=== PATIENT | female | born 1985 | race Caucasian/White ===

== ENCOUNTER 2016-04-29 05:54 | Inpatient (IN) | payer BC ==
[2016-04-29] VITALS (35 sets, daily range): BP systolic 113–142; BP diastolic 68–91; PULSE 72–109; RESP 16–18; TEMP 97.8–98.6
[~2016-04-29 05:54] MED LIST: LOMO PO; METF500 PO; PANT20 PO; ZOFR4TAB3 SL
[2016-04-29] MEDS ORDERED: LACTATED RINGER'S 1000 ML IV SCH (06:30)
[2016-04-29] MEDS ORDERED: LIDOCAINE HCL 1% 50 ML VIAL INFIL PRN (06:30)
[2016-04-29] MEDS ORDERED: NS 1000 ML IV PRN (06:30)
[2016-04-29] MEDS ORDERED: OXYTOCIN 30 UNITS 500ML PREMIX IV ONE (06:30)
[2016-04-29] MEDS ORDERED: LIDOCAINE HCL 1% 50 ML VIAL I-DERMAL PRN (06:30)
[2016-04-29] MEDS ORDERED: OXYTOCIN 30 UNITS/NS 500ML PREMIX IV SCH (06:30)
[2016-04-29] MEDS ORDERED: ONDANSETRON HCL 4 MG/2 ML VIAL IV PRN (06:30)
[2016-04-29] MEDS ORDERED: NS 500 ML BOLUS IV PRN (06:30)
[2016-04-29] MEDS ORDERED: LACTATED RINGER'S 1000 ML BOLUS IV PRN (06:30)
[2016-04-29] MEDS ORDERED: MINERAL OIL 10 ML VIAL TOP PRN (06:30)
[2016-04-29] MEDS ORDERED: CITRIC ACID-SODIUM CITRATE LIQ 30 ML UDC PO SCH (06:30)
[2016-04-29 07:00] LABS: AUTOMATED NEUTROPHIL # 5.9 TH/MM3 (1.8-7.7); BASOPHIL % 0.1 % (0.0-2.0); EOSINOPHIL # 0.1 TH/MM3 (0-0.4); EOSINOPHIL % 1.2 % (0.0-4.0); HEMATOCRIT 32.8 % (35.0-46.0); HEMO FLAGS DIFF FINAL; LYMPH % 18.2 % (9.0-44.0); LYMPHOCYTE # 1.5 TH/MM3 (1.0-4.8); MEAN CELL VOLUME 91.3 FL (80.0-100.0); MEAN CORPUSCULAR HEMOGLOBIN 31.7 PG (27.0-34.0); MEAN CORPUSCULAR HGB CONC 34.7 % (32.0-36.0); MONO % 6.3 % (0.0-8.0); NEUT % 74.2 % (16.0-70.0); PLATELET COUNT 230 TH/MM3 (150-450); RED BLOOD COUNT 3.59 MIL/MM3 (4.00-5.30); RED CELL DISTRIBUTION WIDTH 13.4 % (11.6-17.2)
[2016-04-29 08:23] LABS: BACTERIA, URINE OCC /hpf; BLOOD, URINE NEG (NEG); COMMENT (UR) CULT NOT INDICATED; CULTURE IF INDICATED CULT NOT INDICATED; GLUCOSE,URINE NEG (NEG); KETONE, URINE NEG (NEG); MUCUS URINE FEW /lpf (OCC); NITRITE,URINE NEG (NEG); PH, URINE 5.5 (5.0-8.5); SQUAMOUS EPITHELIAL CELL URINE 2 /hpf (0-5); URINE COLOR YELLOW (YELLW/STRAW)
[2016-04-29] MEDS ORDERED: fentaNYL 2MCG-BUPIV 0.125% INJ 100 ML ONE (12:39)
[2016-04-29] MEDS ORDERED: BENZOCAINE 20% TOPICAL SPRAY 60 ML CAN TOPICAL PRN (13:15)
[2016-04-29] MEDS ORDERED: ALUMINUM/MAGNESIUM/SIMETH 30 ML CUP PO PRN (13:15)
[2016-04-29] MEDS ORDERED: ONDANSETRON ODT 4 MG TAB PO PRN (13:15)
[2016-04-29] MEDS ORDERED: DOCUSATE SODIUM 50 MG/SENNA 8.6 MG TAB PO PRN (13:15)
[2016-04-29] MEDS ORDERED: WITCH HAZEL 50%/GLYCERIN 12.5% 40 PAD JAR TOPICAL PRN (13:15)
[2016-04-29] MEDS ORDERED: OXYTOCIN 30 UNITS-500ML PREMIX 500 ML IV ONE (13:15)
[2016-04-29] MEDS ORDERED: OXYTOCIN 10 UNIT/ML AMP XX PRN (13:15)
[2016-04-29] MEDS ORDERED: ACETAMINOPHEN 325 MG TAB PO PRN (13:15)
[2016-04-29] MEDS ORDERED: oxyCODONE/ACETAMINOPHEN 5 MG/325 MG TAB PO PRN ×2 (13:15)
[2016-04-29] MEDS ORDERED: SODIUM CHLORIDE 0.9% FLUSH 5 ML FLUSH IV PRN (13:15)
--- NOTE | 2016-04-29 13:20 | PD.OB.DELI ---
Delivery Date: Apr 29, 2016 Anesthesia: None Episiotomy: None Vaginal Delivery: Normal Presentation: Occiput anterior Nuchal Cord: x1 Delayed cord clamping (45 sec): Yes (60 secs) : Female One Minute : 8 Five Minute : 8 Weight: 3544 Care: Spontaneous crying Placenta: Spontaneous delivery, Intact, 3 vessel cord Laceration: No lacerations Additional Information EBL 150cc Courtesy standby delivery for Samy Worthington MD Apr 29, 2016 13:20
--- NOTE | 2016-04-29 13:21 | HHI.HP ---
HPI Travel History International Travel<30 Days: No Contact w/Intl Traveler<30Days: No History of Present Illness HPI 30 yo presents for induction of labor at 39 wks. uncomplicated . + FM, no LOF/VB/CTX Para: 3 : 4 History Past Medical History Narrative Medical depression left knee arthritis colitis Obstetric History Obstetric History X 3 Past Surgical History Narrative Surgical knee surgery scope cholecystectomy Family History Narrative Family History father: heart dz mother: HTN, DM Social History Alcohol Use: No Tobacco Use: No Substance Abuse: No Allergies-Medications (Allergen,Severity, Reaction): Coded Allergies: Diclofenac (Unverified Allergy, Severe, unknown, 12/02/14) Morphine (Verified Allergy, Severe, HIVES, 12/02/14) Naprosyn (Verified Adverse Reaction, Severe, ABD ULCERS, 12/02/14) Home Meds Active Scripts Diphenoxylate/Atropine (Lomotil)1 Tab Tab1 Tab PO PRN #12 TAB 1 TAB, 5 TIMES A DAY NEEDED WITH EACH EPISODE OF DIARRHEA. DO NOT EXCEED 5 TABLETS/DAY. Prov:Joel Phelps MD 11/24/14 Ondansetron (Zofran ODT)4 Mg Tab4 Mg SL Q6H PRN (NAUSEA) #6 TAB FOR NAUSEA/VOMITING Prov:Joel Phelps MD 11/24/14 Pantoprazole Sodium (Protonix)20 Mg Tab20 Mg PO DAILY #15 TAB Prov:Joel Phelps MD 11/24/14 Reported Medications Metformin 500 mg (Glucophage 500 mg)500 Mg [id number] Mg PO BIDPC 11/24/14 Review of Systems Except as stated in HPI: all other systems reviewed are Neg Physical Exam Narrative GENERAL: Well-nourished, well-developed patient. SKIN: Warm and dry. HEAD: Normocephalic and atraumatic. EYES: No scleral icterus. No injection or drainage. ENT: No nasal drainage noted. Mucous membranes pink. Airway patent. NECK: Supple, trachea midline. No JVD. CARDIOVASCULAR: Regular rate and rhythm without murmurs, gallops, or rubs. RESPIRATORY: Breath sounds equal bilaterally. No accessory muscle use. BREASTS: Bilateral exam showed no masses , no retractions, no nipple discharge. ABDOMEN/GI: Abdomen soft, non-tender, bowel sounds present, no rebound, no guarding Gravid to [40] weeks size Fundal Height: [-] GENITOURINARY: External Genitalia: intact and normal in appearance BUS glands: [-] Cervix: [ 3-4/ 50/-3 on admission] Dilatation: [-] Effacement: [-] Station: [-] Presentation: [-] Membranes: [intact or ruptured] Uterine Contractions: [-] FHT's: Category: [-] Baseline: [-] Reactive: [-] Variability: [-] Decels: [-] EXTREMITIES: No cyanosis or edema. BACK: Nontender without obvious deformity. No CVA tenderness. NEUROLOGICAL: Awake and alert. Motor and sensory grossly within normal limits. Five out of 5 muscle strength in all muscle groups. Normal speech. Data Data Orders Admit To Inpatient (04/29/16 ) Code Status (04/29/16 06:00) Vital Signs (Adult) .Per protocol (04/29/16 06:00) ^ Heart (04/29/16 06:00) ^ Amnioinfusion (04/29/16 06:00) Urinary Catheter Management .ONCE (04/29/16 06:00) Diet Liquid (04/29/16 Breakfast) Complete Blood Count With Diff (04/29/16 06:00) Hold Clot (04/29/16 06:00) Abo/Rh Blood Type (04/29/16 06:00) Urinalysis - C+S If Indicated (04/29/16 06:00) Resp Oxygen Non Rebreathe Mask (04/29/16 ) ^ Epidural / Intrathecal Infus (04/29/16 06:00) ^ Non Stress Test (04/29/16 06:00) Response To Medication .Post New Med Administration, Reaction (04/29/16 06:00) ^ Discontinue Medication (04/29/16 06:00) Lactated Ringer's 1000 Ml Inj (Lr 1000 M (04/29/16 06:30) Lactated Ringer's 1000 Ml Inj (Lr 1000 M (04/29/16 06:30) Sodium Chlorid 0.9% 500 Ml Inj (Ns 500 M (04/29/16 06:30) Sodium Chlor 0.9% 1000 Ml Inj (Ns 1000 M (04/29/16 06:30) Lidocaine 1% Inj (50 Ml) (Xylocaine 1% I (04/29/16 06:30) Citric Acid-Sodium Citrate Liq (Bicitra (04/29/16 06:30) Ondansetron Inj (Zofran Inj) (04/29/16 06:30) Fentanyl Inj (Fentanyl Inj) (04/29/16 06:30) Fentanyl Inj (Fentanyl Inj) (04/29/16 06:30) Oxytocin 30 Units-500ml Premix (Pitocin (04/29/16 06:30) Lidocaine 1% Inj (50 Ml) (Xylocaine 1% I (04/29/16 06:30) Light Mineral Oil (Muri-Lube Oil) (04/29/16 06:30) Oxytocin 30 Units-500ml Premix (Pitocin (04/29/16 06:30) Fentanyl 2mcg-Bupiv 0.125% Inj (Fentanyl (04/29/16 12:39) Oxytocin Inj (Pitocin Inj) (04/29/16 13:15) Oxytocin 30 Units-500ml Premix (Pitocin (04/29/16 13:15) Vital Signs (Adult) .QSHIFT (04/29/16 13:12) Activity Oob Ad Sofia (04/29/16 13:12) Ice / Cold Pack PRN (04/29/16 13:12) ^ Discontinue Iv (04/29/16 13:12) ^ Sitz Bath PRN (04/29/16 13:12) ^ Massage (04/29/16 13:12) ^ Rhogam (04/29/16 13:12) Urinary Catheter Management .PRN (04/29/16 13:12) Diet Regular Basic (04/29/16 Lunch) Sodium Chloride 0.9% Flush (Ns Flush) (04/29/16 21:00) Sodium Chloride 0.9% Flush (Ns Flush) (04/29/16 13:15) Acetaminophen (Tylenol) (04/29/16 13:15) Ibuprofen (Motrin) (04/29/16 13:15) Oxycodone-Acetamin 5-325 Mg (Percocet (04/29/16 13:15) Oxycodone-Acetamin 5-325 Mg (Percocet (04/29/16 13:15) Benzocaine 20% Top Spr (Americaine 20% T (04/29/16 13:15) Witch Isa-Glycerin Pad (Tucks Pads) (04/29/16 13:15) Docusate Sodium-Senna (Maricruz-Colace) (04/29/16 13:15) Zolpidem (Ambien) (04/29/16 13:15) Fqbwxpb-Lcpal-Ujpkiyd Inj (M-M-R Ii Inj) (04/29/16 16:00) Ysbl-Dxb-Edsmoh (Booster) Inj (Boostrix (04/29/16 16:00) Al-Mag Hy-Si 40-40-4 Mg/Ml Liq (Mag-Al P (04/29/16 13:15) Ondansetron Odt (Zofran Odt) (04/29/16 13:15) Labs Laboratory Tests Test 04/29/16 06:20 White Blood Count 8.0 Red Blood Count 3.59 Hemoglobin 11.4 Hematocrit 32.8 Mean Corpuscular Volume 91.3 Mean Corpuscular Hemoglobin 31.7 Mean Corpuscular Hemoglobin 34.7 Concent Red Cell Distribution Width 13.4 Platelet Count 230 Mean Platelet Volume 8.9 Neutrophils (%) (Auto) 74.2 Lymphocytes (%) (Auto) 18.2 Monocytes (%) (Auto) 6.3 Eosinophils (%) (Auto) 1.2 Basophils (%) (Auto) 0.1 Neutrophils # (Auto) 5.9 Lymphocytes # (Auto) 1.5 Monocytes # (Auto) 0.5 Eosinophils # (Auto) 0.1 Basophils # (Auto) 0.0 CBC Comment DIFF FINAL Differential Comment Urine Color YELLOW Urine Turbidity CLEAR Urine pH 5.5 Urine Specific [place] 1.015 Urine Protein NEG Urine Glucose (UA) NEG Urine Ketones NEG Urine Occult Blood NEG Urine Nitrite NEG Urine Bilirubin NEG Urine Urobilinogen LESS THAN 2.0 Urine Leukocyte Esterase NEG Urine RBC LESS THAN 1 Urine WBC 2 Urine Squamous Epithelial 2 Cells Urine Bacteria OCC Urine Mucus FEW Microscopic Urinalysis Comment CULT NOT INDICATED Blood Type O POSITIVE Band and Hold Assessment/Plan Problem List: (1) Plan: AROM Pitocin GBS neg Elvi Mejia MD Apr 29, 2016 13:21
[2016-04-29] MEDS ORDERED: DIPHTH/TETANUS/ACEL PERTUSSIS (BOOSTER) 0.5 ML VIAL/PFS IM ONE (16:00)
[2016-04-29] MEDS ORDERED: MEASLES, MUMPS, RUBELLA VACCINE 0.5 ML VIAL SQ ONE (16:00)
[2016-04-29] MEDS ORDERED: SODIUM CHLORIDE 0.9% FLUSH 5 ML FLUSH IV SCH (21:00)
[2016-04-29] MEDS ORDERED: ZOLPIDEM TARTRATE 5 MG TAB PO PRN (21:00)
[2016-04-29] MEDS: IBUPROFEN 600 MG TAB PO PRN (21:51)
[2016-04-30 08:00] VITALS: BP 116/78; PULSE 82; RESP 18; TEMP 98.1
[2016-04-30] MEDS: IBUPROFEN 600 MG TAB PO PRN ×2 (08:24→16:17)
[2016-05-01 07:50] VITALS: BP 131/82; PULSE 86; RESP 20; TEMP 97.9
[2016-05-01] MEDS: IBUPROFEN 600 MG TAB PO PRN (08:01)
== END 2016-05-01 11:05 | disposition home or self-care (01) | DRG 775 ==
LOC: H2EA 05:54 → H1EA 14:43
PROVIDERS: ADMIT Obstetrics & Gynecology; ATTEND Obstetrics & Gynecology
PROC: 10E0XZZ Delivery of Products of Conception, External Approach (ICD-10-PCS; principal; 2016-04-29)
DX: O69.81X0 Labor and delivery complicated by cord around neck, without compression, not applicable or unspecified (principal); M17.12 Unilateral primary osteoarthritis, left knee; Z37.0 Single live birth; Z3A.39 39 weeks gestation of pregnancy; Z88.5 Allergy status to narcotic agent; Z88.6 Allergy status to analgesic agent
CPT/HCPCS: 59025; 81001; 85025; 90715; J2590; J3010; J7120

== ENCOUNTER 2016-07-01 18:48 | Emergency (ER) | payer BC, OTHER ==
[~2016-07-01] VITALS: Ht 175.3 cm; Wt 91.0 kg
[2016-07-01 19:00] VITALS: BP 127/74; PULSE 98; RESP 16; TEMP 97.8; O2SAT 98
[2016-07-01 20:21] LABS: AUTOMATED NEUTROPHIL # 4.6 TH/MM3 (1.8-7.7); BASOPHIL % 0.4 % (0.0-2.0); EOSINOPHIL # 0.1 TH/MM3 (0-0.4); EOSINOPHIL % 1.4 % (0.0-4.0); HEMATOCRIT 37.8 % (35.0-46.0); HEMO FLAGS DIFF FINAL; LYMPH % 22.3 % (9.0-44.0); LYMPHOCYTE # 1.5 TH/MM3 (1.0-4.8); MEAN CELL VOLUME 89.1 FL (80.0-100.0); MEAN CORPUSCULAR HEMOGLOBIN 30.3 PG (27.0-34.0); MONO % 7.2 % (0.0-8.0); NEUT % 68.7 % (16.0-70.0); PLATELET COUNT 306 TH/MM3 (150-450); RED BLOOD COUNT 4.24 MIL/MM3 (4.00-5.30); RED CELL DISTRIBUTION WIDTH 13.1 % (11.6-17.2); WHITE BLOOD COUNT 6.6 TH/MM3 (4.0-11.0)
[2016-07-01 20:29] LABS: BLOOD, URINE NEG (NEG); COMMENT (UR) CULT NOT INDICATED; CULTURE IF INDICATED CULT NOT INDICATED; GLUCOSE,URINE NEG (NEG); HYALINE CAST, URINE 1 /lpf (RARE); KETONE, URINE NEG (NEG); NITRITE,URINE NEG (NEG); SQUAMOUS EPITHELIAL CELL URINE 8 /hpf (0-5); URINE COLOR YELLOW (YELLW/STRAW)
[2016-07-01 20:33] LABS: AMPHETAMINE, URINE NEG (NEG); BARBITURATES, URINE NEG (NEG); COCAINE, URINE NEG (NEG)
[2016-07-01 20:37] LABS: ANION GAP 8 MEQ/L (5-15); BICARBONATE 26.6 MEQ/L (21.0-32.0); BLOOD UREA NITROGEN 9 MG/DL (7-18); CHLORIDE 105 MEQ/L (98-107); GLOMERULAR FILTRATION RATE 82 ML/MIN (>89); POTASSIUM 3.8 MEQ/L (3.5-5.1); SODIUM (NA) 140 MEQ/L (136-145)
--- NOTE | 2016-07-01 21:13 | PD ---
HPI Chief Complaint: Psychiatric Symptoms Time Seen by Provider: 21:13 Travel History International Travel<30 days: No Contact w/Intl Traveler<30days: No Traveled to known affect area: No History of Present Illness HPI 30-year-old female presents to the emergency department under Nolasco act for suicidal ideations. The patient states that she has had worsening depression recently and got into an argument with her today and insulin U he did that she was going to swallow a whole bottle of pills. States that her stopped her before she could take the pills. States that she thinks it was a bottle of Percocet but is really not sure, she did not ingest anything anyway. She states that she is 8 weeks with a at home and is under a lot of stress. States that she saw her doctor 2 weeks ago and was prescribed Zoloft but has not begun taking this medication because "I was in denial." She denies any alcohol or drug use. She does complain of feeling some pressure in her breasts because she has missed pumping over the last several hours while being here in the hospital. Denies any fever, chills, nausea, vomiting, chest pain, shortness of breath, abdominal pain. No other complaints. PFSH Past Medical History Hx Anticoagulant Therapy: No Anxiety: Yes Depression: Yes Heart Rhythm Problems: Yes (HX OF INCREASE HEART RATE NOT ABOVE 110) Cancer: No Cardiac Catheterization: Yes (APR 2012) Cardiovascular Problems: No High Cholesterol: No Chemotherapy: No Chest Pain: Yes Congestive Heart Failure: No Cerebrovascular Accident: No Diabetes: No Diminished Hearing: No Endocrine: No Gastrointestinal Disorders: Yes (hx of stomach ulcers) GERD: Yes Genitourinary: No Hepatitis: No Hiatal Hernia: No Immune Disorder: No Musculoskeletal: Yes (arthritis neck and back problems) Neurologic: Yes (migraines) Psychiatric: No Reproductive: No Respiratory: No Migraines: Yes Thyroid Disease: No ?: Not : 3 Para: 3 Past Surgical History Abdominal Surgery: No Body Medical Devices: titanium pins left knee Cardiac Surgery: No Cholecystectomy: Yes (JUNE 2013) Coronary Artery Bypass Graft: No Ear Surgery: No Endocrine Surgery: No Eye Surgery: No Genitourinary Surgery: No Gynecologic Surgery: No Hysterectomy: No Joint Replacement: No Oral Surgery: Yes (WISDOM TEETH SEPTEMBER 2013) Pacemaker: No Thoracic Surgery: No Tonsillectomy: Yes Other Surgery: Yes (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 DO NOT EXCEED 5 TABLETS/DAY. Zofran ODT (Ondansetron HCl) 4 Mg Tab 4 Mg SL Q6H PRN FOR NAUSEA/VOMITING Protonix (Pantoprazole Sodium) 20 Mg Tab 20 Mg PO DAILY Reported Glucophage 500 mg (Metformin HCl) 500 Mg Tab 500 Mg PO BIDPC Review of Systems Except as stated in HPI: all other systems reviewed are Neg Physical Exam Narrative GENERAL: Well-nourished and well-developed pleasant female patient in no acute distress. SKIN: Warm and dry. HEAD: Normocephalic and atraumatic. No EYES: No injection, drainage, or hyphema noted. PERRLA. EOMI. ENT: No nasal drainage noted. Oropharynx is clear. NECK: Supple and the trachea is midline. CARDIOVASCULAR: Regular rate and rhythm. RESPIRATORY: Breath sounds are equal bilaterally with no accessory muscle use, wheezing, rhonchi, or crackles. GASTROINTESTINAL: Abdomen is soft, non-tender, and nondistended. MUSCULOSKELETAL: No obvious deformities, swelling, cyanosis, or ecchymosis is present throughout the upper and lower extremities. Patient has full range of motion without any signs of neurovascular compromise. NEUROLOGICAL: Awake, alert, and oriented. Normal speech and gait. Cranial nerves are grossly intact. Data Data Last Documented VS Vital Signs Date Time Temp Pulse Resp B/P Pulse Ox O2 Delivery O2 Flow Rate FiO2 07/01/16 19:00 97.8 98 16 127/74 98 Orders Complete Blood Count With Diff (07/01/16 19:44) Basic Metabolic Panel (Bmp) (07/01/16 19:44) Urinalysis - C+S If Indicated (07/01/16 19:44) Drug Screen, Random Urine (07/01/16 19:44) Salicylates (Aspirin) (07/01/16 19:53) Alcohol (Ethanol) (07/01/16 19:45) ^ Breast Care (07/01/16 21:13) Labs Laboratory Tests Test 07/01/16 07/01/16 19:45 20:00 White Blood Count 6.6 TH/MM3 Red Blood Count 4.24 MIL/MM3 Hemoglobin 12.9 GM/DL Hematocrit 37.8 % Mean Corpuscular Volume 89.1 FL Mean Corpuscular Hemoglobin 30.3 PG Mean Corpuscular Hemoglobin 34.0 % Concent Red Cell Distribution Width 13.1 % Platelet Count 306 TH/MM3 Mean Platelet Volume 8.2 FL Neutrophils (%) (Auto) 68.7 % Lymphocytes (%) (Auto) 22.3 % Monocytes (%) (Auto) 7.2 % Eosinophils (%) (Auto) 1.4 % Basophils (%) (Auto) 0.4 % Neutrophils # (Auto) 4.6 TH/MM3 Lymphocytes # (Auto) 1.5 TH/MM3 Monocytes # (Auto) 0.5 TH/MM3 Eosinophils # (Auto) 0.1 TH/MM3 Basophils # (Auto) 0.0 TH/MM3 CBC Comment DIFF FINAL Differential Comment Sodium Level 140 MEQ/L Potassium Level 3.8 MEQ/L Chloride Level 105 MEQ/L Carbon Dioxide Level 26.6 MEQ/L Anion Gap 8 MEQ/L Blood Urea Nitrogen 9 MG/DL Creatinine 0.82 MG/DL Estimat Glomerular Filtration 82 ML/MIN Rate Random Glucose 84 MG/DL Calcium Level 9.1 MG/DL Salicylates Level 1.9 MG/DL Ethyl Alcohol Level LESS THAN 3 MG/DL Urine Color YELLOW Urine Turbidity HAZY Urine pH 6.0 Urine Specific [place] 1.014 Urine Protein NEG mg/dL Urine Glucose (UA) NEG mg/dL Urine Ketones NEG mg/dL Urine Occult Blood NEG Urine Nitrite NEG Urine Bilirubin NEG Urine Urobilinogen LESS THAN 2.0 MG/DL Urine Leukocyte Esterase MOD Urine WBC 5 /hpf Urine Squamous Epithelial 8 /hpf Cells Urine Hyaline Casts 1 /lpf Microscopic Urinalysis Comment CULT NOT INDICATED Urine Opiates Screen NEG Urine Barbiturates Screen NEG Urine Amphetamines Screen NEG Urine Benzodiazepines Screen NEG Urine Cocaine Screen NEG Urine Cannabinoids Screen NEG MDM Medical Decision Making Medical Screen Exam Complete: Yes Emergency Medical Condition: Yes Differential Diagnosis Differential: Depression versus adjustment reaction versus anxiety versus PTSD versus psychosis NOS versus mood disorder NOS versus substance induced mood disorder versus ODD versus adjustment reaction versus schizophrenia versus bipolar disorder versus schizoaffective versus electrolyte abnormality Narrative Course Patient presents under a Nolasco act. Physical examination and vital signs are essentially unremarkable. Patient is complaining of breast pressure from needing to pump, she'll be provided with a device to alleviate these symptoms. Psych screen has been ordered. The laboratory results are unremarkable. The patient is medically cleared for psychiatric evaluation and disposition. Diagnosis Primary Impression: depression Lisa Longo Jul 01, 2016 21:13
[2016-07-01] MEDS ORDERED: ZOLO25TA PO (22:22)
[2016-07-01 22:28] VITALS: BP 156/96; PULSE 86; RESP 18; O2SAT 99
[2016-07-02 02:35] VITALS: BP 107/56; PULSE 76; RESP 18; O2SAT 100
[2016-07-02 06:24] VITALS: BP 110/58; PULSE 86; RESP 18; O2SAT 99
[2016-07-02 11:21] VITALS: BP 111/83; PULSE 68; RESP 20; TEMP 98.2; O2SAT 98
--- NOTE | 2016-07-02 12:12 | PD ---
History of Present Illness Chief Complaint: Psychiatric Symptoms Time Seen by Provider: 11:35 Travel History International Travel<30 Days: No Contact w/Intl Traveler<30days: No Known affected area: No Legal Status Legal Status: Nolasco Act Nolasco Act Signed By: Wayne Rush History of Present Illness: History of Present Illness HPI 30-year-old female with no previous psychiatric history who presents to the emergency department under Nolasco act initiated by ROQUE. The report states " while arguing with her Vianey stated that she wanted to kill herself and grabbed a bottle of pills and placed an unknown amount of pills in her mouth. She spit the pills out with out swallowing them. The patient's called the police. The patient has not had any previous attempts and has no prior BA. EMR is reviewed and she has not had any previous contact with [facility]. Current toxicology is negative. The patient is seen in [facility] pod. She has been monitored and has not presented any suicidal behavior. This morning she is alert, oriented, cooperative. Speech is clear and logical. There is no omar and no psychosis. Mood is anxious as she wants to go home. Patient reports that she was involved in an argument with her and impulsively put the pills in her mouth. She denies that she has any intention of killing herself and denies current suicidal ideation. She states it was an impulsive act in context of argument. She acknowledges she feels overwhelmed with current responsibilities as well as feeling mildly depressed. She was prescribed Zoloft by her ob but she has not taken the medications. Recent stressors include recent of fifth child, recently returned to work multimedia production assistant and marital distress. The patient however is involved in couple's therapy as well as involved in her orthodoxy young adult groups. She has been in communication with her and is now ready to begin the medication to help her increase her coping. PFSH Past Medical History Hx Anticoagulant Therapy: No Anxiety: Yes Depression: Yes Heart Rhythm Problems: Yes (HX OF INCREASE HEART RATE NOT ABOVE 110) Cancer: No Cardiac Catheterization: Yes (APR 2012) Cardiovascular Problems: No High Cholesterol: No Chemotherapy: No Chest Pain: Yes Congestive Heart Failure: No Cerebrovascular Accident: No Diabetes: No Diminished Hearing: No Endocrine: No Gastrointestinal Disorders: Yes (hx of stomach ulcers) GERD: Yes Genitourinary: No Hepatitis: No Hiatal Hernia: No Heparin Induced Thrombocytopen: No Hypertension: No Immune Disorder: No Musculoskeletal: Yes (arthritis neck and back problems) Neurologic: Yes (migraines) Psychiatric: No Reproductive: No Respiratory: No Migraines: Yes Thyroid Disease: No ?: Not : 3 Para: 3 Past Surgical History Abdominal Surgery: No Body Medical Devices: titanium pins left knee Cardiac Surgery: No Cholecystectomy: Yes (JUNE 2013) Coronary Artery Bypass Graft: No Ear Surgery: No Endocrine Surgery: No Eye Surgery: No Genitourinary Surgery: No Gynecologic Surgery: No Hysterectomy: No Joint Replacement: No Neurologic Surgery: No Oral Surgery: Yes (WISDOM TEETH SEPTEMBER 2013) Pacemaker: No Thoracic Surgery: No Tonsillectomy: Yes Other Surgery: Yes (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) Psychiatric History Psychiatric History Hx Psychiatric Treatment: PT DENIES PSYCHIATRIC HISTORY Recently began counseling. History of Inpatient Treatment: No Guns or firearms in home: No Social History x 7 years. has 5 children. works in [employer]. Hx Alcohol Use: No Hx Tobacco Use: No Hx Substance Use: No (PT DENIES) Hx of Substance Use Treatment: No Family Psychiatric History negative Allergies-Medications (Allergen,Severity, Reaction): Coded Allergies: Diclofenac (Unverified Allergy, Severe, unknown, 12/02/14) Morphine (Verified Allergy, Severe, HIVES, 12/02/14) Naprosyn (Verified Adverse Reaction, Severe, ABD ULCERS, 12/02/14) Reported Meds & Prescriptions Reported Meds & Active Scripts Active Reported Zoloft (Sertraline HCl) 25 Mg Tab 0 PO DAILY Review of Systems Except as stated in HPI: all other systems reviewed are Neg Exam Alert: Yes [place]: Person (ox4) Mood: Anxious Affect: Appropriate Speech: Clear, Logical Eye Contact: Normal Memory Intact: Comment (no impairment) Hallucinations: Other (negative) Delusions: No Suicidal: Ideation (deneis any) Homicidal: Ideation (deneis any) Insight/Judgement fair . not impaired. MDM Medical Decision Making Medical Record Reviewed: Yes Assessment/Plan 30 year old female with no previous psychiatric history that in context of an argument with her took some pills and put them in her mouth. She did not swallow them. She denies that this was an attempt to kill herself but rather an act that was prompted by her anger and frustration. She denies any suicidal or homicidal ideation, intent or plan. She has recently been prescribed Zoloft but does not present significant symptoms of depression which would require inpatient treatment. The patient has good protective factors as well as being future oriented, She does not present imminent risk to self or others. Psychoeducation is provided. She will be discharged. Instructed to continue with outpatient counseling To return to ed if any changes. Orders Complete Blood Count With Diff (07/01/16 19:44) Basic Metabolic Panel (Bmp) (07/01/16 19:44) Urinalysis - C+S If Indicated (07/01/16 19:44) Drug Screen, Random Urine (07/01/16 19:44) Salicylates (Aspirin) (07/01/16 19:53) Alcohol (Ethanol) (07/01/16 19:45) ^ Breast Care (07/01/16 21:13) Psych Screen (07/01/16 22:35) Diet Regular Basic (07/02/16 Breakfast) Diet Regular Basic (07/02/16 Lunch) Results Vital Signs Date Time Temp Pulse Resp B/P Pulse Ox O2 Delivery O2 Flow Rate FiO2 07/02/16 11:21 98.2 68 20 111/83 98 07/02/16 06:24 86 18 110/58 99 Room Air 07/02/16 02:35 76 18 107/56 100 07/01/16 22:28 86 18 156/96 99 07/01/16 19:00 97.8 98 16 127/74 98 Laboratory Tests Test 07/01/16 07/01/16 19:45 20:00 White Blood Count 6.6 Red Blood Count 4.24 Hemoglobin 12.9 Hematocrit 37.8 Mean Corpuscular Volume 89.1 Mean Corpuscular Hemoglobin 30.3 Mean Corpuscular Hemoglobin 34.0 Concent Red Cell Distribution Width 13.1 Platelet Count 306 Mean Platelet Volume 8.2 Neutrophils (%) (Auto) 68.7 Lymphocytes (%) (Auto) 22.3 Monocytes (%) (Auto) 7.2 Eosinophils (%) (Auto) 1.4 Basophils (%) (Auto) 0.4 Neutrophils # (Auto) 4.6 Lymphocytes # (Auto) 1.5 Monocytes # (Auto) 0.5 Eosinophils # (Auto) 0.1 Basophils # (Auto) 0.0 CBC Comment DIFF FINAL Differential Comment Sodium Level 140 Potassium Level 3.8 Chloride Level 105 Carbon Dioxide Level 26.6 Anion Gap 8 Blood Urea Nitrogen 9 Creatinine 0.82 Estimat Glomerular Filtration 82 Rate Random Glucose 84 Calcium Level 9.1 Salicylates Level 1.9 Ethyl Alcohol Level LESS THAN 3 Urine Color YELLOW Urine Turbidity HAZY Urine pH 6.0 Urine Specific [place] 1.014 Urine Protein NEG Urine Glucose (UA) NEG Urine Ketones NEG Urine Occult Blood NEG Urine Nitrite NEG Urine Bilirubin NEG Urine Urobilinogen LESS THAN 2.0 Urine Leukocyte Esterase MOD Urine WBC 5 Urine Squamous Epithelial 8 Cells Urine Hyaline Casts 1 Microscopic Urinalysis Comment CULT NOT INDICATED Urine Opiates Screen NEG Urine Barbiturates Screen NEG Urine Amphetamines Screen NEG Urine Benzodiazepines Screen NEG Urine Cocaine Screen NEG Urine Cannabinoids Screen NEG Diagnosis Primary Impression: Adjustment disorder Psychiatrically Cleared: Yes Med/ Other Pt Specific Info: No Change to Meds Disposition: 01 DISCHARGE HOME Condition: Stable Problem Qualifiers Primary Impression: Adjustment disorder Qualified Code: F43.21 - Adjustment disorder with depressed mood Melina Botello Jul 02, 2016 12:12
== END 2016-07-02 13:02 | disposition home or self-care (01) ==
LOC: NEDAMB 18:48 → NEPJ 07-02 13:02
DX: F43.20 Adjustment disorder, unspecified (principal); F53 Mental and behavioral disorders associated with the puerperium, not elsewhere classified
CPT/HCPCS: 80048; 80307; 81001; 85025; 99284

== ENCOUNTER 2017-01-31 09:57 | Emergency (ER) | payer BC, OTHER ==
[~2017-01-31] VITALS: Ht 165.1 cm; Wt 120.0 kg
[~2017-01-31 09:57] MED LIST changes: -LOMO PO; -METF500 PO; -PANT20 PO; -ZOFR4TAB3 SL; +ZOLO25TA PO
[2017-01-31 10:01] VITALS: BP 128/65; PULSE 104; RESP 16; TEMP 98.8; O2SAT 97
[2017-01-31] MEDS ORDERED: SODIUM CHLOR 0.9% 1000 ML INJ 1,000 ML IV ONE (10:15)
[2017-01-31 10:23] LABS: AUTOMATED NEUTROPHIL # 9.5 TH/MM3 (1.8-7.7); BASOPHIL % 0.2 % (0.0-2.0); EOSINOPHIL % 0.3 % (0.0-4.0); HEMATOCRIT 36.2 % (35.0-46.0); HEMO FLAGS DIFF FINAL; LYMPH % 7.8 % (9.0-44.0); LYMPHOCYTE # 0.9 TH/MM3 (1.0-4.8); MEAN CELL VOLUME 84.8 FL (80.0-100.0); MEAN CORPUSCULAR HEMOGLOBIN 28.3 PG (27.0-34.0); MEAN CORPUSCULAR HGB CONC 33.4 % (32.0-36.0); MONO % 6.7 % (0.0-8.0); PLATELET COUNT 260 TH/MM3 (150-450); RED BLOOD COUNT 4.26 MIL/MM3 (4.00-5.30); RED CELL DISTRIBUTION WIDTH 13.2 % (11.6-17.2); WHITE BLOOD COUNT 11.1 TH/MM3 (4.0-11.0)
[2017-01-31 10:31] LABS: CHLORIDE 103 MEQ/L (98-107); POTASSIUM 3.3 MEQ/L (3.5-5.1); SODIUM (NA) 138 MEQ/L (136-145)
[2017-01-31 10:35] LABS: ANION GAP 11 MEQ/L (5-15); BICARBONATE 24.2 MEQ/L (21.0-32.0); BLOOD UREA NITROGEN 7 MG/DL (7-18)
[2017-01-31 10:37] LABS: ALT (GPT) 15 U/L (10-53)
[2017-01-31 10:38] LABS: AST (GOT) 10 U/L (15-37); GLOMERULAR FILTRATION RATE 89 ML/MIN (>89)
[2017-01-31 10:39] LABS: TOTAL BILIRUBIN ADULT 0.5 MG/DL (0.2-1.0)
[2017-01-31 10:40] LABS: ALKALINE PHOSPHATASE 74 U/L (45-117)
--- NOTE | 2017-01-31 10:51 | RADRPT ---
EXAM DATE/TIME: 01/31/2017 10:36 [place] COMPARISON: No previous studies available for comparison. INDICATIONS : Chest pain, cough, congestion, short of breath. MEDICAL HISTORY : None. SURGICAL HISTORY : None. ENCOUNTER: Initial ACUITY: 3 days PAIN SCORE: 7/10 LOCATION: Bilateral chest FINDINGS: Frontal and lateral views of the chest demonstrate a normal-sized cardiac silhouette. There is airspa ce opacity in the right lower lobe. No pleural effusion or pneumothorax is identified. The bones and soft tissues demonstrate no acute finding. CONCLUSION: Airspace opacity, likely consolidation, in the right lower lobe. This finding is characteristic of pn eumonia given the history of cough. Ra Haney MD on January 31, 2017 at 10:48 Board Certified Radiologist. This report was verified electronically.
[2017-01-31 10:57] VITALS: BP 125/60; PULSE 112; RESP 16; TEMP 99.5; O2SAT 100
[2017-01-31 11:26] LABS: BLOOD, URINE SMALL (NEG); GLUCOSE,URINE NEG (NEG); KETONE, URINE TRACE mg/dL (NEG); NITRITE,URINE NEG (NEG)
[2017-01-31 11:35] LABS: COMMENT (UR) CULT NOT INDICATED; COMMENT2 (UR) MUCOUS PRESENT; CULTURE IF INDICATED CULT NOT INDICATED; METHOD OF COLLECTION CLEAN CATCH; RBC, URINE 0-3 /hpf (0-3); URINE COLOR YELLOW (YELLW/STRAW); WBC, URINE 0-2 /hpf (0-5)
[2017-01-31] MEDS ORDERED: ACETAMINOPHEN 325 MG TAB PO ONE (11:45)
[2017-01-31] MEDS ORDERED: LEVA750T9 PO (12:21)
--- NOTE | 2017-01-31 12:21 | PD ---
HPI Chief Complaint: Syncope/Near-Syncope Time Seen by Provider: 10:04 Travel History International Travel<30 days: No Contact w/Intl Traveler<30days: No Traveled to known affect area: No History of Present Illness HPI 31-year-old female presents with almost passing out when she went to an urgent care for cough and congestion. She states she's been having these symptoms over the past couple of days. She denies any other specific concurrent complaints. She denies any loss of consciousness. She states she recently finished her menstrual cycle. She feels worse when she moves around. She denies other modifying factors. Quality is productive cough. Severity is progressive. She presents by ambulance. PFSH Past Medical History Hx Anticoagulant Therapy: No Anxiety: Yes Depression: Yes Heart Rhythm Problems: Yes (HX OF INCREASE HEART RATE NOT ABOVE 110) Cancer: No Cardiac Catheterization: Yes (APR 2012) Cardiovascular Problems: No High Cholesterol: No Chemotherapy: No Chest Pain: Yes Congestive Heart Failure: No Cerebrovascular Accident: No Diabetes: No Diminished Hearing: No Endocrine: No Gastrointestinal Disorders: Yes (hx of stomach ulcers) GERD: Yes Genitourinary: No Hepatitis: No Hiatal Hernia: No Heparin Induced Thrombocytopen: No Hypertension: No Immune Disorder: No Musculoskeletal: Yes (arthritis neck and back problems) Neurologic: Yes (migraines) Psychiatric: No Reproductive: No Respiratory: No Immunizations Current: Yes Migraines: Yes Thyroid Disease: No Tetanus Vaccination: < 5 Years Influenza Vaccination: Yes ?: Not : 3 Para: 3 Past Surgical History Abdominal Surgery: No Body Medical Devices: titanium pins left knee Cardiac Surgery: No Cholecystectomy: Yes (JUNE 2013) Coronary Artery Bypass Graft: No Ear Surgery: No Endocrine Surgery: No Eye Surgery: No Genitourinary Surgery: No Gynecologic Surgery: No Hysterectomy: No Joint Replacement: No Neurologic Surgery: No Oral Surgery: Yes (WISDOM TEETH SEPTEMBER 2013) Pacemaker: No Thoracic Surgery: No Tonsillectomy: Yes Other Surgery: Yes (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) Family History Family Myocardial Infarction: Yes (FATHER AT THE AGE OF 30) Social History Alcohol Use: Yes (~1 X MONTH) Tobacco Use: No Substance Use: No (PT DENIES) Allergies-Medications (Allergen,Severity, Reaction): Coded Allergies: diclofenac (Unverified Allergy, Severe, unknown, 01/31/17) morphine (Unverified Allergy, Severe, HIVES, 01/31/17) naproxen (Unverified Adverse Reaction, Severe, ABD ULCERS, 01/31/17) Reported Meds & Prescriptions Reported Meds & Active Scripts Active Levaquin (Levofloxacin) 750 Mg Tablet 750 Mg PO DAILY 7 Days Review of Systems Except as stated in HPI: all other systems reviewed are Neg Physical Exam Narrative General: No apparent distress, well appearing ENT: Posterior oropharyngx clear without exudate or erythema Neck: Neck is supple, no meningeal signs, trachea is midline Cardiovascular: Regular rate and rhythm Lungs: No increased respiratory effort noted, CTA bilaterally at apices Abdomen: Soft, NT, ND, no rebound or guarding Extremities: No edema Neuro: Awake, motor and sensation grossly intact, normal speech Data Data Last Documented VS Vital Signs Date Time Temp Pulse Resp B/P (MAP) Pulse Ox O2 Delivery O2 Flow Rate FiO2 01/31/17 12:44 01/31/17 12:35 107 16 97 Room Air 01/31/17 10:57 99.5 Orders Orders Complete Blood Count With Diff (01/31/17 09:59) Comprehensive Metabolic Panel (01/31/17 09:59) Urinalysis - C+S If Indicated (01/31/17 09:59) Lactic Acid Sepsis Protocol (01/31/17 09:59) Iv Access Insert/Monitor (01/31/17 09:59) Ed Urine Pregnancytest Poc (01/31/17 09:59) Influenzae A/B Antigen (01/31/17 09:59) Chest, Pa & Lat (01/31/17 ) Sodium Chlor 0.9% 1000 Ml Inj (Ns 1000 M (01/31/17 10:15) Acetaminophen (Tylenol) (01/31/17 11:45) Ed Discharge Order (01/31/17 12:38) Labs Laboratory Tests Test 01/31/17 10:15 01/31/17 11:15 White Blood Count 11.1 TH/MM3 Red Blood Count 4.26 MIL/MM3 Hemoglobin 12.1 GM/DL Hematocrit 36.2 % Mean Corpuscular Volume 84.8 FL Mean Corpuscular Hemoglobin 28.3 PG Mean Corpuscular Hemoglobin Concent 33.4 % Red Cell Distribution Width 13.2 % Platelet Count 260 TH/MM3 Mean Platelet Volume 7.6 FL Neutrophils (%) (Auto) 85.0 % Lymphocytes (%) (Auto) 7.8 % Monocytes (%) (Auto) 6.7 % Eosinophils (%) (Auto) 0.3 % Basophils (%) (Auto) 0.2 % Neutrophils # (Auto) 9.5 TH/MM3 Lymphocytes # (Auto) 0.9 TH/MM3 Monocytes # (Auto) 0.7 TH/MM3 Eosinophils # (Auto) 0.0 TH/MM3 Basophils # (Auto) 0.0 TH/MM3 CBC Comment DIFF FINAL Differential Comment Blood Urea Nitrogen 7 MG/DL Creatinine 0.76 MG/DL Random Glucose 104 MG/DL Total Protein 7.6 GM/DL Albumin 3.5 GM/DL Calcium Level 8.1 MG/DL Alkaline Phosphatase 74 U/L Aspartate Amino Transf (AST/SGOT) 10 U/L Alanine Aminotransferase (ALT/SGPT) 15 U/L Total Bilirubin 0.5 MG/DL Sodium Level 138 MEQ/L Potassium Level 3.3 MEQ/L Chloride Level 103 MEQ/L Carbon Dioxide Level 24.2 MEQ/L Anion Gap 11 MEQ/L Estimat Glomerular Filtration Rate 89 ML/MIN Lactic Acid Level 1.7 mmol/L Urine Collection Type CLEAN CATCH Urine Color YELLOW Urine Turbidity CLEAR Urine pH 7.0 Urine Specific [place] 1.021 Urine Protein 30 mg/dL Urine Glucose (UA) NEG mg/dL Urine Ketones TRACE mg/dL Urine Occult Blood SMALL Urine Nitrite NEG Urine Bilirubin NEG Urine Leukocyte Esterase NEG Urine RBC 0-3 /hpf Urine WBC 0-2 /hpf Urine Squamous Epithelial Cells 6-8 /hpf Microscopic Urinalysis Comment CULT NOT INDICATED MDM Medical Decision Making Medical Screen Exam Complete: Yes Emergency Medical Condition: Yes Medical Record Reviewed: Yes (past history confirmed) Interpretation(s) CBC & BMP Diagram 01/31/17 10:15 Total Protein 7.6, Albumin 3.5, Calcium Level 8.1 L, Alkaline Phosphatase 74, Aspartate Amino Transf (AST/SGOT) 10 L, Alanine Aminotransferase (ALT/SGPT) 15, Total Bilirubin 0.5 Last 24 hours Impressions Chest X-Ray 01/31/17 0000 Signed Impressions: Service Date/Time: Tuesday, January 31, 2017 10:36 - CONCLUSION: Airspace opacity, likely consolidation, in the right lower lobe. This finding is characteristic of pneumonia given the history of cough. Ra Haney MD Differential Diagnosis Anemia, pneumonia, upper respiratory infection, renal failure, vasovagal Narrative Course Will check blood work, imaging and dose with IV fluids and reevaluate Workup shows pneumonia. Will dose with Tylenol and reevaluate Patient denies any new complaints and states that they are feeling better. Patient is wanting to go home, mother at bedside and will watch over patient, all questions answered. Patient knows that follow up is incumbent on them and to return to the emergency room immediately if new or worsening symptoms develop. Patient given strict return precautions, agrees to further workup as an outpatient. Diagnosis Primary Impression: Pneumonia Qualified Codes: J18.1 - Lobar pneumonia, unspecified organism Patient Instructions: General Instructions Additional Instructions: return as needed, tylenol and motrin as needed, follow with primary tommorrow Med/Other Pt SpecificInfo: Prescription(s) given Scripts Levofloxacin (Levaquin) 750 Mg Tablet 750 MG PO DAILY for Infection for 7 Days, #7 TAB 0 Refills Prov: Bobbi Connor MD 01/31/17 Disposition: 01 DISCHARGE HOME Condition: Stable Bobbi Connor MD Jan 31, 2017 12:21
[2017-01-31 12:35] VITALS: BP 117/63; PULSE 107; RESP 16; O2SAT 97
--- NOTE | 2017-01-31 21:21 | EKG ---
Date Performed: 01/31/2017 Time Performed: 10:12:04 PTAGE: 31 years EKG: SINUS TACHYCARDIA INCOMPLETE RIGHT BUNDLE BRANCH BLOCK NONSPECIFIC T-WAVE ABNORMALITY ABNOR MAL RHYTHM ECG Compared to prior tracing no significant change DOCTOR: Edson Rosales Interpretating Date/Time 01/31/2017 21:20:12
== END 2017-01-31 12:51 | disposition home or self-care (01) ==
LOC: PHED 09:57
DX: J18.1 Lobar pneumonia, unspecified organism (principal)
CPT/HCPCS: 71020; 80053; 81001; 83605; 84703; 85025; 87804; 93005; 96360; 96361; 99284; J7030

== ENCOUNTER 2017-02-02 13:33 | Observation (INO) | payer BC ==
[~2017-02-02] VITALS: Ht 165.1 cm; Wt 125.5 kg
[~2017-02-02 13:33] MED LIST changes: +LEVA750T9 PO; -ZOLO25TA PO
[2017-02-02 13:37] VITALS: BP 162/79; PULSE 97; RESP 17; TEMP 98; O2SAT 97
[2017-02-02] MEDS ORDERED: HYDR-3516 PO (13:56)
--- NOTE | 2017-02-02 14:10 | PD ---
HPI Chief Complaint: Respiratory Symptoms Time Seen by Provider: 13:58 Travel History International Travel<30 days: No Contact w/Intl Traveler<30days: No Traveled to known affect area: No History of Present Illness HPI The patient was seen and examined in the presence of the nurse. This patient complains of cough and congestion and fever. She was seen here 4 days ago for pneumonia and prescribed Levaquin. She is taking it but doesn't feel like she is getting any better. She had a temperature 101 yesterday. Her primary physician told her to come back here. No Alleviating factors. She is a nonsmoker and no history of pulmonary disease. No exacerbating factors. Severity is moderate PFSH Past Medical History Hx Anticoagulant Therapy: No Anxiety: Yes Depression: Yes Heart Rhythm Problems: Yes (HX OF INCREASE HEART RATE NOT ABOVE 110) Cancer: No Cardiac Catheterization: Yes (APR 2012) Cardiovascular Problems: No High Cholesterol: No Chemotherapy: No Chest Pain: Yes Congestive Heart Failure: No Cerebrovascular Accident: No Diabetes: No Diminished Hearing: No Endocrine: No Gastrointestinal Disorders: Yes (hx of stomach ulcers) GERD: Yes Genitourinary: No Hepatitis: No Hiatal Hernia: No Heparin Induced Thrombocytopen: No Hypertension: No Immune Disorder: No Musculoskeletal: Yes (arthritis neck and back problems) Neurologic: Yes (migraines) Psychiatric: No Reproductive: No Respiratory: No Immunizations Current: Yes Migraines: Yes Thyroid Disease: No ?: Not LMP: 01/28/2017 : 3 Para: 3 Past Surgical History Abdominal Surgery: No Body Medical Devices: titanium pins left knee Cardiac Surgery: No Cholecystectomy: Yes (JUNE 2013) Coronary Artery Bypass Graft: No Ear Surgery: No Endocrine Surgery: No Eye Surgery: No Genitourinary Surgery: No Gynecologic Surgery: No Hysterectomy: No Joint Replacement: No Neurologic Surgery: No Oral Surgery: Yes (WISDOM TEETH SEPTEMBER 2013) Pacemaker: No Thoracic Surgery: No Tonsillectomy: Yes Other Surgery: Yes (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) Family History Family Myocardial Infarction: Yes (FATHER AT THE AGE OF 30) Social History Alcohol Use: Yes (~1 X MONTH) Tobacco Use: No Substance Use: No (PT DENIES) Allergies-Medications (Allergen,Severity, Reaction): Coded Allergies: diclofenac (Unverified Allergy, Severe, unknown, 02/02/17) morphine (Unverified Allergy, Severe, HIVES, 02/02/17) naproxen (Unverified Adverse Reaction, Severe, ABD ULCERS, 02/02/17) Reported Meds & Prescriptions Reported Meds & Active Scripts Active Levaquin (Levofloxacin) 750 Mg Tablet 750 Mg PO DAILY 7 Days Reported Hydrocodone-Acetaminophen 5-325 mg Tab 1 Tab PO Q6H PRN Review of Systems General / Constitutional: Positive: Fever Eyes: No: Visual changes HENT: No: Headaches Cardiovascular: No: Chest Pain or Discomfort Respiratory: Positive: Cough, No: Shortness of Breath Gastrointestinal: No: Abdominal Pain Genitourinary: No: Dysuria Musculoskeletal: No: Pain Skin: No Rash Neurologic: No: Weakness Psychiatric: No: Depression Endocrine: No: Polydipsia Hematologic/Lymphatic: No: Easy Bruising Physical Exam Narrative GENERAL: Well-nourished, well-developed patient with cough and fever SKIN: Focused skin assessment reveals no rash and nodules. Skin is Warm and dry. HEAD: Atraumatic. Normocephalic. EYES: Pupils equal and round. No scleral icterus. No injection or drainage. ENT: No nasal bleeding or discharge. Mucous membranes pink and moist. NECK: Trachea midline. No JVD. CARDIOVASCULAR: Regular rate and rhythm. No murmur appreciated. RESPIRATORY: No accessory muscle use. Sparse basilar crackles on the right side . Breath sounds equal bilaterally. GASTROINTESTINAL: Abdomen soft, non-tender, nondistended. Hepatic and splenic margins not palpable. MUSCULOSKELETAL: No obvious deformities. No clubbing. No cyanosis. No edema. NEUROLOGICAL: Awake and alert. No obvious cranial nerve deficits. Motor grossly within normal limits. Normal speech. PSYCHIATRIC: Appropriate mood and affect; insight and judgment normal. Data Data Last Documented VS Vital Signs Date Time Temp Pulse Resp B/P (MAP) Pulse Ox O2 Delivery O2 Flow Rate FiO2 02/02/17 15:06 99.2 98 18 140/84 (102) 98 Orders Orders Chest, Single Ap (02/02/17 ) Sodium Chlor 0.9% 1000 Ml Inj (Ns 1000 M (02/02/17 15:05) Acetaminophen (Tylenol) (02/02/17 15:15) Guaifen-Cod 200-20 Mg/10ml Liq (Robituss (02/02/17 15:15) Place In Observation (02/02/17 ) Vital Signs (Adult) Q4H (02/02/17 15:05) Activity Oob Ad Sofia (02/02/17 15:05) Notify Parameters (02/02/17 15:05) Intake + Output Q8H (02/02/17 15:05) Diet Regular Basic (02/02/17 Dinner) Complete Blood Count With Diff (02/03/17 06:00) Sputum Culture And Gram Stain (02/02/17 15:05) Blood Culture (02/02/17 15:05) Legionella Urinary Antigen (02/02/17 15:05) Pneumococcal Urinary Antigen (02/02/17 15:05) Resp Oxygen Jemal C Titrat 1-4 L (02/02/17 ) Enoxaparin Inj (Lovenox Inj) (02/02/17 17:00) Complete Blood Count With Diff (02/02/17 15:10) Comprehensive Metabolic Panel (02/02/17 15:10) Ampicillin-Sulbactam Inj (Unasyn Inj) (02/02/17 15:15) Admit Order (Ed Use Only) (02/02/17 15:12) MDM Medical Decision Making Medical Screen Exam Complete: Yes Emergency Medical Condition: Yes Medical Record Reviewed: Yes Differential Diagnosis Pneumonia, bronchitis, URI Narrative Course I have reviewed the patient's electronic medical record. Reviewed her visit from 4 days ago and looked at her chest x-ray and lab studies I repeated a chest x-ray today and compared it to prior. It seems similar to me. Radiologist noted it might be slightly improved. Clinically she feels worse. She saw her primary physician both today and yesterday. This was Dr. Sebastián Arvizu and I called and spoke with her about the case. She is recommending inpatient care for IV antibiotics as the patient seems to be failing outpatient treatment. sHe still spiking fever and feeling miserable. IV was placed CBC normal and metabolic profile and LFTs normal I gave her dose of IV Unasyn Diagnosis Primary Impression: Community acquired pneumonia Qualified Codes: J18.1 - Lobar pneumonia, unspecified organism Additional Impression: Failure of outpatient treatment Admitting Information Admitting Physician Requests: Admit Med/Other Pt SpecificInfo: Other Disposition: 01 DISCHARGE HOME Condition: Stable Dale Mercedes MD Feb 02, 2017 14:10
[2017-02-02] MEDS ORDERED: SODIUM CHLOR 0.9% 1000 ML INJ 1,000 ML IV SCH (15:05)
[2017-02-02 15:06] VITALS: BP 140/84; PULSE 98; RESP 18; TEMP 99.2; O2SAT 98
[2017-02-02] MEDS ORDERED: guaiFENesin/CODEINE SYRUP 200 MG/20 MG/10 ML CUP PO PRN (15:15)
[2017-02-02] MEDS ORDERED: AMPICILLIN-SULBACTAM INJ 3 GM in SODIUM CHLORIDE 0.9% INJ 100 ML IV ONE (15:15)
--- NOTE | 2017-02-02 15:20 | RADRPT ---
EXAM DATE/TIME: 02/02/2017 14:16 [facility] COMPARISON: CHEST PA & LAT, January 31, 2017, 10:36. INDICATIONS : Fever, shortness of breath, and chest pain. MEDICAL HISTORY : None. SURGICAL HISTORY : None. ENCOUNTER: [facility] ACUITY: 1 week PAIN SCORE: 8/10 LOCATION: Bilateral chest FINDINGS: The examination demonstrates a right basilar infiltrate. The heart is at the upper limits of normal i n size. The osseous structures are intact. CONCLUSION: 1. Right basilar infiltrate concerning for a pneumonia. This appears somewhat less consolidated than seen on previous of 01/31/17. Julian Wright MD on February 02, 2017 at 15:18 Board Certified Radiologist. This report was verified electronically.
[2017-02-02 16:00] LABS: AUTOMATED NEUTROPHIL # 2.8 TH/MM3 (1.8-7.7); BASOPHIL % 0.2 % (0.0-2.0); EOSINOPHIL % 0.9 % (0.0-4.0); HEMO FLAGS DIFF FINAL; LYMPH % 20.9 % (9.0-44.0); LYMPHOCYTE # 0.9 TH/MM3 (1.0-4.8); MEAN CELL VOLUME 85.2 FL (80.0-100.0); MEAN CORPUSCULAR HEMOGLOBIN 28.6 PG (27.0-34.0); MEAN CORPUSCULAR HGB CONC 33.5 % (32.0-36.0); MONO % 12.4 % (0.0-8.0); NEUT % 65.6 % (16.0-70.0); PLATELET COUNT 252 TH/MM3 (150-450); RED CELL DISTRIBUTION WIDTH 12.9 % (11.6-17.2); WHITE BLOOD COUNT 4.2 TH/MM3 (4.0-11.0)
[2017-02-02 16:08] LABS: CHLORIDE 105 MEQ/L (98-107); POTASSIUM 3.3 MEQ/L (3.5-5.1); SODIUM (NA) 140 MEQ/L (136-145)
[2017-02-02 16:12] LABS: ANION GAP 9 MEQ/L (5-15); BICARBONATE 25.8 MEQ/L (21.0-32.0); BLOOD UREA NITROGEN 6 MG/DL (7-18)
[2017-02-02 16:15] LABS: ALT (GPT) 22 U/L (10-53)
[2017-02-02 16:22] LABS: ALKALINE PHOSPHATASE 68 U/L (45-117); AST (GOT) 21 U/L (15-37); GLOMERULAR FILTRATION RATE 114 ML/MIN (>89); TOTAL BILIRUBIN ADULT 0.4 MG/DL (0.2-1.0)
[2017-02-02] MEDS: ENOXAPARIN SODIUM 40 MG/0.4 ML SYRINGE SQ SCH (17:44)
[2017-02-02 17:51] VITALS: BP 146/95; PULSE 83; RESP 16; O2SAT 98
[2017-02-02 20:00] VITALS: BP 136/93; PULSE 99; RESP 20; TEMP 99; O2SAT 99
[2017-02-02 20:50] VITALS: O2SAT 97
[2017-02-02] MEDS ORDERED: AZITHROMYCIN INJ 500 MG in SODIUM CHLOR 0.9% 250 ML INJ 250 ML IV SCH (21:00)
--- NOTE | 2017-02-02 21:11 | MH ---
cc: GUILLE TAYLOR M.D. DATE OF ADMISSION 02/02/2017 ADMISSION DIAGNOSIS Pneumonia. HISTORY OF PRESENT ILLNESS The patient is a 31-year-old female who states was in her usual state of health until this weekend when on Monday when returning from a trip to [place] she began to feel more fatigued and just not quite well. By Monday, she had developed some malaise, cough and congestion. She was feeling flushed and feverish. She actually went to [facility] to be evaluated and had a presyncopal episode there and was EVAC'd to the [place] emergency room. There she was evaluated and found to have a low grade temperature with a white count 11.1 and an x-ray that was interpreted as airspace opacity, likely consolidation in the right lower lobe. The patient was discharged home on Levaquin 750 mg which she took that night, Monday night. She continued to be feverish and febrile and actually felt worse the next day at which point she had called the office. I did see her in the office and evaluated her. She did have a low grade fever and rhonchi on her right lung. At that time, we discussed that she had only had two doses of the Levaquin and possibly had not had a chance to respond to the antibiotic. She was still feeling very achy and painful and having pain on deep inspiration. We discussed starting to take Advil 800 mg every 6 hours with food as she seemed to tolerate that as well as Lortab every eight as needed for the pain. She was to give the antibiotics another 24 hours to work. She was also to keep herself well hydrated with Gatorade and liquids such as soup which she planned to do. Apparently, she went home. She was seen in the later part of morning. She continued the anti-inflammatories and Hydrocodone according to her. She had a temperature again that evening of 102. She then spoke to the office saying that she was still feeling very congested with fever and cough. At that point, it was felt she had possibly failed the outpatient treatment for pneumonia so she was directed to the emergency room. She tells me she still feels very feverish and flushed. She is having a hard time keeping food down. She has been trying to keep herself hydrated with Gatorade. She has had some loose stools since Monday, she says maybe three. She still has a cough with thick phlegm as well as the right sided chest pain with deep inspiration. PAST MEDICAL HISTORY 1. Significant for migraines. 2. She does occasionally get tachycardiac. 3. She has had a past medical history of ulcers. 4. She did have skin cancer removed from her right arm and chest. PAST SURGICAL HISTORY 1. Left knee arthroscopic surgery, 2. Cholecystectomy 3. Appendectomy 4. Excision of skin cancer. She does not recall it being a melanoma, but her records are saying that it was melanoma. It is not clear where this is coming from. MEDICATIONS At home 1. Levaquin 750 2. Advil 800 q. six 3. Lortab q. 8. These that she has just been taking for the last day. HABITS She rarely consumes alcohol. She does not smoke. SOCIAL HISTORY She works in Human Relations. She is . She is independent in her activities of daily living. REVIEW OF SYSTEMS She does relate cough and congestion as well as chest pain with deep inspiration on the right side. No abdominal pain. No heartburn. No constipation. She has had the three episodes of loose stools. She tells me that she has been urinating well. She has not had a decrease in urine. No numbness or weakness, even though she did say that when she was going to pass out at the Urgent Care she felt like her hands and legs and ears were all tingling. PHYSICAL EXAMINATION VITAL SIGNS: temperature is 99.2, pulse is 98, respirations 18, blood pressure is 140/84, pulse ox on room air is 98%. GENERAL: She is lying in the hospital room. She looks uncomfortable. She is a little bit flushed. HEENT: She is normocephalic and traumatic. EOM is intact. She has dry oral mucosa. Her throat is not hyperemic. NECK: Her neck is supple. LUNGS: Her lung sounds are clear on the left. I can hear rhonchi on the right actually almost custodial up. HEART: Regular. I hear no real murmurs. She is not tender to palpation on the anterior chest wall on the right. ABDOMEN: Globose with good bowel sounds in all four quadrants. No rebound or guarding. EXTREMITIES: No clubbing, cyanosis or edema. She moves them all well. LABORATORY DATA Lab work that was done showed a white count of 4.2, hemoglobin of 11.7, hematocrit of 35, platelet count of 252, monos were 12.4 with lymphocytes of 0.9. Sodium was 140, potassium of 3.3, BUN is six, creatinine is 0.61. Blood cultures are pending. IMAGING STUDIES They did do a repeat chest x-ray that continued to show a right basal infiltrate concerning for pneumonia. They did feel that perhaps it was less consolidated than three days ago. ASSESSMENT/PLAN A 31-year-old female presenting with pneumonia who subjectively does not appear to be responding to treatment. She states she continues to have a high-grade fever and chest discomfort with inspiration despite 72 hours of antibiotics. At this point after discussion, I have agreed to admit her overnight, hydrate her, give her IV fluids since per report she has not had that much food intake. Also monitor her temperature curve overnight and get some control of her symptoms. Lab work has been ordered as well to see if we can better identify the organism with which she has her infection. She also has been complaining of headaches. Her blood pressure in the emergency room and the rest of the day has actually been fairly elevated for her. This may have been secondary to the Advil. I will go ahead and just keep her on Tylenol for her fever and her pain. Monitor her blood pressure and her headache like type symptoms. MD CHIDI Meza/ /8:21 PM /8:51 PM
[2017-02-02] MEDS ORDERED: cefTRIAXone INJ 1,000 MG in SODIUM CHLORIDE 0.9% INJ 100 ML IV SCH (22:00)
[2017-02-02] MEDS: D5-1/2 NS + KCL 20 MEQ INJ 1,000 ML IV SCH (22:09)
[2017-02-02] MEDS: ACETAMINOPHEN 325 MG TAB PO PRN (22:23)
[2017-02-03] VITALS: BP 110/68; PULSE 82; RESP 18; TEMP 97.6; O2SAT 95
[2017-02-03] MEDS: ACETAMINOPHEN 325 MG TAB PO PRN (06:54)
[2017-02-03 07:51] VITALS: O2SAT 97
[2017-02-03 08:00] VITALS: BP 136/89; PULSE 80; RESP 14; TEMP 97; O2SAT 98
[2017-02-03 09:00] LABS: AUTOMATED NEUTROPHIL # 1.8 TH/MM3 (1.8-7.7); BASOPHIL % 0.3 % (0.0-2.0); EOSINOPHIL # 0.1 TH/MM3 (0-0.4); EOSINOPHIL % 3.4 % (0.0-4.0); HEMATOCRIT 35.4 % (35.0-46.0); HEMO FLAGS DIFF FINAL; LYMPH % 30.4 % (9.0-44.0); MEAN CELL VOLUME 86.3 FL (80.0-100.0); MEAN CORPUSCULAR HEMOGLOBIN 28.2 PG (27.0-34.0); MEAN CORPUSCULAR HGB CONC 32.7 % (32.0-36.0); MONO % 12.3 % (0.0-8.0); NEUT % 53.6 % (16.0-70.0); PLATELET COUNT 261 TH/MM3 (150-450); RED CELL DISTRIBUTION WIDTH 13.1 % (11.6-17.2); WHITE BLOOD COUNT 3.3 TH/MM3 (4.0-11.0)
[2017-02-03 09:05] LABS: POTASSIUM 3.2 MEQ/L (3.5-5.1)
[2017-02-03 09:09] LABS: BICARBONATE 25.1 MEQ/L (21.0-32.0)
[2017-02-03] MEDS: D5-1/2 NS + KCL 20 MEQ INJ 1,000 ML IV SCH ×2 (10:01→16:15)
[2017-02-03 12:00] VITALS: BP 127/85; PULSE 81; RESP 14; TEMP 97.4; O2SAT 99
[2017-02-03] MEDS ORDERED: POTASSIUM CHLORIDE 20 MEQ CONTROLLED RELEASE TAB PO ONE (14:00)
--- NOTE | 2017-02-03 15:41 | HHI.PR ---
Subjective Remarks feels a little better today, still some sweats,trying to eat, headache in rt temporal region had some tylenol Objective Vitals Vital Signs Date Time Temp Pulse Resp B/P (MAP) Pulse Ox O2 Delivery O2 Flow Rate FiO2 02/03/17 12:00 97.4 81 14 127/85 (99) 99 02/03/17 10:01 18 02/03/17 08:00 97.0 80 14 136/89 (105) 98 02/03/17 07:51 97 21 02/03/17 00:00 97.6 82 18 110/68 (82) 95 02/02/17 20:50 97 21 02/02/17 20:00 99.0 99 20 136/93 (107) 99 02/02/17 17:51 83 16 146/95 (112) 98 02/02/17 17:06 02/03/17 02/03/17 02/04/17 15:00 23:00 07:00 Intake Total 236 ml Balance 236 ml Intake Oral 236 ml Result Diagram: 02/03/17 0845 02/03/17 0845 Imaging Last Impressions Chest X-Ray 02/02/17 0000 Signed Impressions: Service Date/Time: January 14:16 - CONCLUSION: 1. Right basilar infiltrate concerning for a pneumonia. This appears somewhat less consolidated than seen on previous of 01/31/17. Julian Wright MD Objective Remarks Lying in hospital bed, less flushed lungs ronchi on the rt rrr not tachycardic +bs no c/c/e A/P Problem List: (1) Community acquired pneumonia ICD Codes: J18.9 - Pneumonia, unspecified organism Status: Acute Plan: she is doing better today, she has been afebrile, her lung exam is stable ,I think at this point she can be discharged with follow up on monday for repeat xray Problem Qualifiers (1) Community acquired pneumonia: Qualified Codes: J18.1 - Lobar pneumonia, unspecified organism Criselda Pierre MD Feb 03, 2017 15:41
[2017-02-03] MEDS ORDERED: CEFD300C PO (15:49)
[2017-02-03] MEDS ORDERED: AZIT250T3 PO (15:49)
[2017-02-03 16:00] VITALS: BP 138/93; PULSE 83; RESP 14; TEMP 96.8; O2SAT 100
[2017-02-03] MEDS: ENOXAPARIN SODIUM 40 MG/0.4 ML SYRINGE SQ SCH (17:00)
== END 2017-02-03 18:36 | disposition home or self-care (01) ==
LOC: PHED 13:33 → PHEDA 15:13 → PH3B 17:03
PROVIDERS: ADMIT Legal Medicine; ATTEND Legal Medicine
DX: J18.1 Lobar pneumonia, unspecified organism (principal); R05 Cough; R50.9 Fever, unspecified; R07.9 Chest pain, unspecified; R55 Syncope and collapse; R53.83 Other fatigue; G43.909 Migraine, unspecified, not intractable, without status migrainosus
CPT/HCPCS: 71010; 80048; 80053; 85025; 87040; 96361; 96365; 96367; 96372; 96375; 99285; G0378; J0295; J0456; J0696; J1650; J3480; J7030; J7050

== ENCOUNTER 2017-09-11 08:17 | Emergency (ER) | payer BC ==
[~2017-09-11] VITALS: Ht 165.1 cm; Wt 130.0 kg
[~2017-09-11 08:17] MED LIST changes: +AZIT250T3 PO; +CEFD300C PO; +HYDR-3516 PO; -LEVA750T9 PO
[2017-09-11 08:20] VITALS: BP 125/77; PULSE 82; RESP 16; TEMP 97.8; O2SAT 100
[2017-09-11] MEDS ORDERED: SODIUM CHLOR 0.9% 1000 ML INJ 1,000 ML IV SCH (08:33)
--- NOTE | 2017-09-11 08:40 | PD ---
HPI Chief Complaint: Abdominal Pain Time Seen by Provider: 08:28 Travel History International Travel<30 days: No Contact w/Intl Traveler<30days: No Traveled to known affect area: No History of Present Illness HPI The patient is a 32-year-old female who presents to the emergency department for abdominal pain and distention with diarrhea. The patient states her symptoms started on with abdominal pain, described as crampy, diffuse, associated with diarrhea. The patient states she had 6 episodes of diarrhea which she describes as loose, watery, brown without any visible blood. The patient denies any nausea or vomiting, has been able to eat without difficulty. However, she feels like she is having some increasing abdominal distention with pain in the right upper and right lower quadrants. The patient denies any fever, chills, or sweats. The patient's child did develop similar symptoms with diarrhea on Monday. She denies any recent international travel. She denies any accompanying chest pain, shortness of breath, cough, dysuria, vaginal discharge, or vaginal bleeding. The patient's only previous abdominal surgery was a cholecystectomy. PFSH Past Medical History Hx Anticoagulant Therapy: No Arthritis: Yes Autoimmune Disease: No Anxiety: Yes Depression: Yes Heart Rhythm Problems: Yes (HX OF INCREASE HEART RATE NOT ABOVE 110) Cancer: No Cardiac Catheterization: Yes (APR 2012) Cardiovascular Problems: Yes (cardiac cath) High Cholesterol: No Chemotherapy: No Chest Pain: No Congestive Heart Failure: No Cerebrovascular Accident: No Diabetes: No Diminished Hearing: No Endocrine: No Gastrointestinal Disorders: Yes (hx of stomach ulcers) GERD: No Genitourinary: Yes Hepatitis: No Hiatal Hernia: No Heparin Induced Thrombocytopen: No Hypertension: No Immune Disorder: No Kidney Stones: Yes Musculoskeletal: Yes (arthritis neck and back problems) Neurologic: Yes Psychiatric: Yes Reproductive: No Respiratory: No Immunizations Current: Yes Migraines: Yes Radiation Therapy: No Renal Failure: No Seizures: No Sickle Cell Disease: No Thyroid Disease: No Ulcer: Yes Tetanus Vaccination: < 5 Years ?: Not LMP: 08/31/2017 : 3 Para: 3 Miscarriage: 0 : 0 Past Surgical History Abdominal Surgery: Yes (gallbadder removed) Arteriovenous Shunt: No Body Medical Devices: titanium pins left mixon Cardiac Surgery: Yes (cardiac cath in 2011) Cholecystectomy: Yes (JUNE 2013) Coronary Artery Bypass Graft: No Ear Surgery: No Endocrine Surgery: No Eye Surgery: No Genitourinary Surgery: No Gynecologic Surgery: No Hysterectomy: No Insulin Pump: No Joint Replacement: No Neurologic Surgery: No Oral Surgery: Yes (WISDOM TEETH SEPTEMBER 2013) Pacemaker: No Thoracic Surgery: No Tonsillectomy: Yes Other Surgery: Yes (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) Family History Family Myocardial Infarction: Yes (FATHER AT THE AGE OF 30) Social History Alcohol Use: Yes (~1 X MONTH) Tobacco Use: No Substance Use: No (PT DENIES) Allergies-Medications (Allergen,Severity, Reaction): Coded Allergies: diclofenac (Unverified Allergy, Severe, unknown, 09/11/17) morphine (Unverified Allergy, Severe, HIVES, 09/11/17) naproxen (Unverified Adverse Reaction, Severe, ABD ULCERS, 09/11/17) Reported Meds & Prescriptions Reported Meds & Active Scripts Active No Active Prescriptions or Reported Medications Review of Systems Except as stated in HPI: all other systems reviewed are Neg General / Constitutional: No: Fever Cardiovascular: No: Chest Pain or Discomfort Respiratory: No: Shortness of Breath Gastrointestinal: Positive: Diarrhea, Abdominal Pain, No: Nausea, Vomiting Genitourinary: No: Dysuria, Discharge, Vaginal Bleeding Physical Exam Narrative GENERAL: Awake, alert, pleasant 32-year-old female appears her stated age and is in no acute respiratory distress. SKIN: Focused skin assessment warm/dry. HEAD: Atraumatic. Normocephalic. EYES: Pupils equal and round. No scleral icterus. No injection or drainage. ENT: No nasal bleeding or discharge. Mucous membranes pink and moist. NECK: Trachea midline. No JVD. CARDIOVASCULAR: Regular rate and rhythm. No murmur appreciated. RESPIRATORY: No accessory muscle use. Clear to auscultation. Breath sounds equal bilaterally. GASTROINTESTINAL: Abdomen soft, obese, tender palpation right upper quadrant right lower quadrant. No guarding or rigidity. MUSCULOSKELETAL: No obvious deformities. No clubbing. No cyanosis. No edema. NEUROLOGICAL: Awake and alert. No obvious cranial nerve deficits. Motor grossly within normal limits. Normal speech. PSYCHIATRIC: Appropriate mood and affect; insight and judgment normal. Data Data Last Documented VS Vital Signs Date Time Temp Pulse Resp B/P (MAP) Pulse Ox O2 Delivery O2 Flow Rate FiO2 09/11/17 11:44 70 18 103/61 (75) 100 Room Air 09/11/17 08:20 97.8 Orders Orders Complete Blood Count With Diff (09/11/17 08:33) Comprehensive Metabolic Panel (09/11/17 08:33) Lipase (09/11/17 08:33) Lactic Acid (09/11/17 08:33) Urinalysis - C+S If Indicated (09/11/17 08:33) Iv Access Insert/Monitor (09/11/17 08:33) Ecg Monitoring (09/11/17 08:33) Oximetry (09/11/17 08:33) Sodium Chlor 0.9% 1000 Ml Inj (Ns 1000 M (09/11/17 08:33) Sodium Chloride 0.9% Flush (Ns Flush) (09/11/17 08:45) Dicyclomine (Bentyl) (09/11/17 08:45) Ed Urine Pregnancytest Poc (09/11/17 08:33) Ondansetron Odt (Zofran Odt) (09/11/17 08:45) Abdomen, Flat & Upright (09/11/17 ) Ketorolac Inj (Toradol Inj) (09/11/17 12:15) Ed Discharge Order (09/11/17 12:02) Labs Laboratory Tests Test 09/11/17 07:44 09/11/17 08:40 White Blood Count 6.8 TH/MM3 Red Blood Count 4.39 MIL/MM3 Hemoglobin 13.3 GM/DL Hematocrit 39.9 % Mean Corpuscular Volume 90.8 FL Mean Corpuscular Hemoglobin 30.3 PG Mean Corpuscular Hemoglobin Concent 33.4 % Red Cell Distribution Width 12.7 % Platelet Count 302 TH/MM3 Mean Platelet Volume 7.8 FL Neutrophils (%) (Auto) 65.8 % Lymphocytes (%) (Auto) 22.9 % Monocytes (%) (Auto) 9.3 % Eosinophils (%) (Auto) 1.8 % Basophils (%) (Auto) 0.2 % Neutrophils # (Auto) 4.5 TH/MM3 Lymphocytes # (Auto) 1.6 TH/MM3 Monocytes # (Auto) 0.6 TH/MM3 Eosinophils # (Auto) 0.1 TH/MM3 Basophils # (Auto) 0.0 TH/MM3 CBC Comment DIFF FINAL Differential Comment Blood Urea Nitrogen 10 MG/DL Creatinine 0.60 MG/DL Random Glucose 84 MG/DL Total Protein 7.1 GM/DL Albumin 3.8 GM/DL Calcium Level 8.2 MG/DL Alkaline Phosphatase 65 U/L Aspartate Amino Transf (AST/SGOT) 15 U/L Alanine Aminotransferase (ALT/SGPT) 14 U/L Total Bilirubin 0.3 MG/DL Sodium Level 141 MEQ/L Potassium Level 3.9 MEQ/L Chloride Level 107 MEQ/L Carbon Dioxide Level 25.0 MEQ/L Anion Gap 9 MEQ/L Estimat Glomerular Filtration Rate 116 ML/MIN Lactic Acid Level 1.7 mmol/L Lipase 115 U/L Urine Color YELLOW Urine Turbidity CLEAR Urine pH 7.0 Urine Specific [place] 1.020 Urine Protein NEG mg/dL Urine Glucose (UA) NEG mg/dL Urine Ketones NEG mg/dL Urine Occult Blood NEG Urine Nitrite NEG Urine Bilirubin NEG Urine Urobilinogen LESS THAN 2 mg/dL Urine Leukocyte Esterase NEG Urine RBC 2 /hpf Urine WBC LESS THAN 1 /hpf Urine Squamous Epithelial Cells 1 /hpf Urine Mucus FEW /lpf Microscopic Urinalysis Comment CULT NOT INDICATED MDM Medical Decision Making Medical Screen Exam Complete: Yes Emergency Medical Condition: Yes Medical Record Reviewed: Yes Interpretation(s) Laboratory Tests Test 09/11/17 07:44 09/11/17 08:40 White Blood Count 6.8 TH/MM3 Red Blood Count 4.39 MIL/MM3 Hemoglobin 13.3 GM/DL Hematocrit 39.9 % Mean Corpuscular Volume 90.8 FL Mean Corpuscular Hemoglobin 30.3 PG Mean Corpuscular Hemoglobin Concent 33.4 % Red Cell Distribution Width 12.7 % Platelet Count 302 TH/MM3 Mean Platelet Volume 7.8 FL Neutrophils (%) (Auto) 65.8 % Lymphocytes (%) (Auto) 22.9 % Monocytes (%) (Auto) 9.3 % Eosinophils (%) (Auto) 1.8 % Basophils (%) (Auto) 0.2 % Neutrophils # (Auto) 4.5 TH/MM3 Lymphocytes # (Auto) 1.6 TH/MM3 Monocytes # (Auto) 0.6 TH/MM3 Eosinophils # (Auto) 0.1 TH/MM3 Basophils # (Auto) 0.0 TH/MM3 CBC Comment DIFF FINAL Differential Comment Blood Urea Nitrogen 10 MG/DL Creatinine 0.60 MG/DL Random Glucose 84 MG/DL Total Protein 7.1 GM/DL Albumin 3.8 GM/DL Calcium Level 8.2 MG/DL Alkaline Phosphatase 65 U/L Aspartate Amino Transf (AST/SGOT) 15 U/L Alanine Aminotransferase (ALT/SGPT) 14 U/L Total Bilirubin 0.3 MG/DL Sodium Level 141 MEQ/L Potassium Level 3.9 MEQ/L Chloride Level 107 MEQ/L Carbon Dioxide Level 25.0 MEQ/L Anion Gap 9 MEQ/L Estimat Glomerular Filtration Rate 116 ML/MIN Lactic Acid Level 1.7 mmol/L Lipase 115 U/L Urine Color YELLOW Urine Turbidity CLEAR Urine pH 7.0 Urine Specific [place] 1.020 Urine Protein NEG mg/dL Urine Glucose (UA) NEG mg/dL Urine Ketones NEG mg/dL Urine Occult Blood NEG Urine Nitrite NEG Urine Bilirubin NEG Urine Urobilinogen LESS THAN 2 mg/dL Urine Leukocyte Esterase NEG Urine RBC 2 /hpf Urine WBC LESS THAN 1 /hpf Urine Squamous Epithelial Cells 1 /hpf Urine Mucus FEW /lpf Microscopic Urinalysis Comment CULT NOT INDICATED Differential Diagnosis Differential diagnosis includes gastroenteritis, enteritis, colitis, ileus, partial small bowel obstruction, food borne illness, food poisoning, dehydration. Narrative Course IV was established, labs are drawn and sent, the patient was placed on cardiac telemetry monitoring and continuous pulse oximetry monitoring. The patient was administered dental, Zofran, placed in IV fluids. Flat and upright x-ray was obtained to evaluate for air-fluid levels. Abdominal x-rays unremarkable. The patient's white count and lactic acid are within normal limits. The patient's vitals unremarkable and abdominal exam is essentially unremarkable, I do not believe acute imaging such as CT the abdomen and pelvis is warranted. The patient most likely has a viral gastroenteritis versus possible food poisoning. The patient will be discharged home on nausea medicine and Bentyl as needed, will be provided a copy of her labs. She is advised to follow-up with her primary physician. Diagnosis Primary Impression: Abdominal pain Qualified Codes: R10.84 - Generalized abdominal pain Additional Impression: Diarrhea Qualified Codes: R19.7 - Diarrhea, unspecified Patient Instructions: General Instructions Additional Instructions: Dental as needed. Clear liquid diet advance as tolerated. Please provide the patient a copy of her labs at discharge. Follow-up with her primary physician. Return if symptoms worsen or progress. Med/Other Pt SpecificInfo: Prescription(s) given Scripts Dicyclomine (Bentyl) 10 Mg Cap 20 MG PO TID Y for Bowel Management, #12 CAP 0 Refills Prov: Patrick Willams MD 09/11/17 Disposition: 01 DISCHARGE HOME Condition: Stable Patrick Willams MD Sep 11, 2017 08:40
[2017-09-11] MEDS ORDERED: ONDANSETRON ODT 4 MG TAB PO ONE (08:45)
[2017-09-11] MEDS ORDERED: DICYCLOMINE HCL 10 MG CAP PO ONE (08:45)
[2017-09-11] MEDS ORDERED: SODIUM CHLORIDE 0.9% FLUSH 10 ML FLUSH IV FLUSH PRN (08:45)
[2017-09-11 09:02] LABS: AUTOMATED NEUTROPHIL # 4.5 TH/MM3 (1.8-7.7); BASOPHIL % 0.2 % (0.0-2.0); EOSINOPHIL # 0.1 TH/MM3 (0-0.4); EOSINOPHIL % 1.8 % (0.0-4.0); HEMATOCRIT 39.9 % (35.0-46.0); HEMOGLOBIN 13.3 GM/DL (11.6-15.3); LYMPH % 22.9 % (9.0-44.0); LYMPHOCYTE # 1.6 TH/MM3 (1.0-4.8); MEAN CELL VOLUME 90.8 FL (80.0-100.0); MEAN CORPUSCULAR HEMOGLOBIN 30.3 PG (27.0-34.0); MEAN CORPUSCULAR HGB CONC 33.4 % (32.0-36.0); MEAN PLATELET VOLUME 7.8 FL (7.0-11.0); MONO % 9.3 % (0.0-8.0); MONOCYTE # 0.6 TH/MM3 (0-0.9); NEUT % 65.8 % (16.0-70.0); PLATELET COUNT 302 TH/MM3 (150-450); RED BLOOD COUNT 4.39 MIL/MM3 (4.00-5.30); RED CELL DISTRIBUTION WIDTH 12.7 % (11.6-17.2); WHITE BLOOD COUNT 6.8 TH/MM3 (4.0-11.0)
[2017-09-11 09:17] LABS: ALBUMIN 3.8 GM/DL (3.4-5.0); AST (GOT) 15 U/L (15-37); BLOOD UREA NITROGEN 10 MG/DL (7-18); CALCIUM 8.2 MG/DL (8.5-10.1); CHLORIDE 107 MEQ/L (98-107); GLOMERULAR FILTRATION RATE 116 ML/MIN (>89); GLUCOSE,RANDOM 84 MG/DL (74-106); SODIUM (NA) 141 MEQ/L (136-145)
[2017-09-11 09:18] LABS: ALT (GPT) 14 U/L (10-53)
[2017-09-11 09:20] LABS: ALKALINE PHOSPHATASE 65 U/L (45-117); TOTAL BILIRUBIN ADULT 0.3 MG/DL (0.2-1.0); TOTAL PROTEIN 7.1 GM/DL (6.4-8.2)
--- NOTE | 2017-09-11 09:32 | RADRPT ---
EXAM DATE: 09/11/2017 9:28 AM EDT AGE/SEX: 32 years / Female INDICATIONS: Abdomen pain, diarrhea a few days ago. CLINICAL DATA: This is the patient's initial encounter. Patient reports that signs and symptoms have been present for 4 - 6 days and indicates a pain score of 6/10. MEDICAL/SURGICAL HISTORY: None. Cholecystectomy. COMPARISON: No prior exams available for comparison. FINDINGS: Supine and upright views of the abdomen were performed. No dilated bowel loops are present. No air-fl uid levels are seen. No abnormal calcifications. The visualized lower lungs are clear. No evidence of free intraperitoneal gas. Surgical clips in the right upper quadrant consistent with prior cholecyst ectomy. The osseous structures are unremarkable. CONCLUSION: 1. Nonobstructive bowel gas pattern. Electronically signed by: Junaid Hidalgo MD 09/11/2017 9:31 AM EDT
[2017-09-11 09:57] LABS: BILIRUBIN, URINE NEG (NEG); BLOOD, URINE NEG (NEG); GLUCOSE,URINE NEG (NEG); KETONE, URINE NEG (NEG); MUCUS URINE FEW /lpf (OCC); NITRITE,URINE NEG (NEG); SQUAMOUS EPITHELIAL CELL URINE 1 /hpf (0-5); URINE COLOR YELLOW (YELLW/STRAW); URINE LEUKOCYTE ESTERASE NEG (NEG)
[2017-09-11 11:44] VITALS: BP 103/61; PULSE 70; RESP 18; O2SAT 100
[2017-09-11] MEDS ORDERED: DICY10 PO (12:04)
[2017-09-11] MEDS ORDERED: KETOROLAC TROMETHAMINE 30 MG/ML (IVP) VIAL IV PUSH ONE (12:15)
[2017-09-11 12:36] VITALS: BP 110/70
== END 2017-09-11 12:36 | disposition home or self-care (01) ==
LOC: NEPC 08:17
DX: R10.84 Generalized abdominal pain (principal); R19.7 Diarrhea, unspecified
CPT/HCPCS: 74019; 80053; 81001; 83605; 83690; 84703; 85025; 96361; 96374; 99284; J1885; J7030